=== PATIENT | female | born 1965 | race Caucasian/White ===

== ENCOUNTER → 2017-10-20 | Outpatient (CLI) | payer OTHER, MEDICAID ==
[~2017-10-20] MED LIST: ALPR.5 PO; BACL20TA PO; BUPR100CR PO; METH1TAB2 PO; MORP1TAB24 PO; OXYC-360 PO; SIMV20TA OR; SIMV40TA PO
[2017-10-20 09:50] LABS: HEMATOCRIT 41.1 % (35.0-46.0); HEMOGLOBIN 13.9 GM/DL (11.6-15.3); MEAN CELL VOLUME 90.5 FL (80.0-100.0); MEAN CORPUSCULAR HEMOGLOBIN 30.6 PG (27.0-34.0); MEAN CORPUSCULAR HGB CONC 33.8 % (32.0-36.0); MEAN PLATELET VOLUME 8.6 FL (7.0-11.0); PLATELET COUNT 261 TH/MM3 (150-450); RED BLOOD COUNT 4.54 MIL/MM3 (4.00-5.30); WHITE BLOOD COUNT 15.3 TH/MM3 (4.0-11.0)
[2017-10-20 09:55] LABS: BILIRUBIN, URINE NEG (NEG); GLUCOSE,URINE NEG (NEG); KETONE, URINE NEG (NEG); NITRITE,URINE NEG (NEG); PH, URINE 5.5 (5.0-8.5); URINE LEUKOCYTE ESTERASE NEG (NEG)
[2017-10-20 09:56] LABS: BLOOD, URINE TRACE (NEG)
[2017-10-20 10:02] LABS: CALCIUM 9.1 MG/DL (8.5-10.1)
[2017-10-20 10:03] LABS: ALBUMIN 3.5 GM/DL (3.4-5.0); BICARBONATE 28.3 MEQ/L (21.0-32.0); CHLORIDE 106 MEQ/L (98-107); GLUCOSE,RANDOM 99 MG/DL (74-106); SODIUM (NA) 141 MEQ/L (136-145)
[2017-10-20 10:04] LABS: URINE COLOR YELLOW (YELLW/STRAW)
[2017-10-20 10:05] LABS: BLOOD UREA NITROGEN 11 MG/DL (7-18)
[2017-10-20 10:06] LABS: ALT (GPT) 13 U/L (10-53); AST (GOT) 14 U/L (15-37); CREATININE 0.98 MG/DL (0.50-1.00); GLOMERULAR FILTRATION RATE 59 ML/MIN (>89); PROTHROMBIN TIME - PATIENT 10.1 SEC (9.8-11.6)
[2017-10-20 10:06] LABS: RBC, URINE 0-3 /hpf (0-3); WBC, URINE 0-2 /hpf (0-5)
[2017-10-20 10:08] LABS: TOTAL BILIRUBIN ADULT 0.3 MG/DL (0.2-1.0); TOTAL PROTEIN 7.4 GM/DL (6.4-8.2)
[2017-10-20 10:09] LABS: ALKALINE PHOSPHATASE 94 U/L (45-117)
--- NOTE | 2017-10-20 13:54 | EKG ---
Date Performed: 10/20/2017 Time Performed: 09:25:55 PTAGE: 52 years EKG: SINUS BRADYCARDIA MODERATE T-WAVE ABNORMALITY, CONSIDER ANTERIOR ISCHEMIA ABNORMAL ECG PREVIOUS TRACING : 07/02/2010 22.27 Since prior tracing, anterior T-wave changes are new, consi fabian ischemia. DOCTOR: Hans Modi Interpretating Date/Time 10/20/2017 13:53:30
== END ==
LOC: PHPRE 08:17
PROVIDERS: ATTEND Surgery
DX: Z01.812 Encounter for preprocedural laboratory examination (principal); Z01.810 Encounter for preprocedural cardiovascular examination; R00.1 Bradycardia, unspecified
CPT/HCPCS: 36415; 80053; 81001; 85027; 85610; 85730; 93005

== ENCOUNTER → 2017-10-27 | Day surgery (SDC) | payer OTHER, MEDICAID ==
--- NOTE | 2017-10-24 13:50 | MH ---
cc: Roe JOSEPH M.D. DATE OF ADMISSION 10/27/2017 ADMITTING DIAGNOSIS Internal derangement with arthritic degeneration right knee, now for arthroscopic debridement right knee. HISTORY OF PRESENT ILLNESS This 52-year-old female is being admitted today for a surgical arthroscopic debridement of arthritis and chondromalacia right knee. She is a pain management patient and does have a morphine pump for chronic back problems. She did have a spine fusion in the past. PAST MEDICAL HISTORY The patient has a history of sciatica, depression and chronic pain syndrome. MEDICATIONS Current medications include: 1. Morphine 50 mg tablet extended release. 2. Simvastatin. 3. Wellbutrin. 4. Baclofen. 5. Nitrofurantoin. 6. Xanax. PAST SURGICAL HISTORY Other than the spine surgery and insertion of a pain pump include cholecystectomy, appendectomy, hysterectomy, breast reduction and ankle arthroscopy. REVIEW OF SYSTEMS Noncontributory. FAMILY HISTORY Noncontributory. SOCIAL HISTORY She does smoke cigarettes but has cut back, and drinks alcohol occasionally. ALLERGIES 1. PENICILLIN. 2. PHENERGAN. PHYSICAL EXAMINATION GENERAL: We find a 52-year-old female well-developed, well-nourished and oriented x3 complaining of pain in her right knee. VITAL SIGNS: Blood pressure 144/80, pulse 74 and regular, respirations 16, temperature 98.2, pulse oximetry 96% on room air. HEENT: Eyes PERRLA, EOMI. Ears, nose and mouth clear. NECK: Supple. LUNGS: Clear. HEART: Regular rate. ABDOMEN: Soft. Positive bowel sounds. Nontender. EXTREMITIES: The right knee is tender with crepitance on range of motion. Full range of motion. Neurovascularly intact to her toes. IMPRESSION The impression at this time is osteoarthritic degeneration, chondromalacia and internal derangement, right knee. PLAN The plan is admission for arthroscopic debridement right knee today. The patient is given a prescription for 30 Benson for postoperative pain control in the office. MD JESSICA Lo/TRACEY /1:08 PM /1:18 PM
[~2017-10-27] VITALS: Ht 162.6 cm; Wt 77.0 kg
[~2017-10-27] MED LIST changes: +*Lactated Ringer's INJ 1,000 ML ONE; +*MEPERIDINE 25 MG INJ VIAL PERIprocedural Use ONLY ONE; +ACETAMINOPHEN/HYDROcodone 325 MG/5 MG TAB ONE; +BUPIVACAINE HCL PF 0.25% 30 ML VIAL ONE; +CHLORHEXIDINE GLUCONATE 2 % 1 PACK (2 CLOTHS) TOPICAL PRN; +CHLORHEXIDINE GLUCONATE 4% SOLN 120 ML BTL TOPICAL SCH; +DEXAMETHASONE SOD PHOS 4 MG/ML VIAL ONE; +LACTATED RINGER'S 1000 ML IV PRN; +METOPROLOL TARTRATE 25 MG TAB PO PRN; +MIDAZOLAM HCL 2 MG/2 ML VIAL ONE; -OXYC-360 PO; +POVIDONE IODINE 5% (ANTISEPSIS KIT) 4 APPLICATIONS EACH NARE PRN; -SIMV20TA OR; +SODIUM CHLORID 0.9% 500 ML IV PRN; +TRIAMCINOLONE ACETONIDE 40 MG/ML VIAL ONE
[2017-10-27] MEDS: CLINDAMYCIN 900 MG/NS 100 ML IV SCH ×4 (07:40→10:19)
[2017-10-27 08:57] VITALS: PULSE 69
--- NOTE | 2017-10-27 09:39 | MP ---
cc: Roe JOSEPH M.D. DATE OF SURGERY 10/27/2017 PREOPERATIVE DIAGNOSIS Arthritic degeneration, right knee. POSTOPERATIVE DIAGNOSIS Arthritic degeneration, right knee. SURGERY PERFORMED Arthroscopy with debridement of arthritis, right knee. SURGEON Dr. Joseph. BUFFING MACHINE OPERATOR SEMIAUTOMATIC JUAN R Kraus. ANESTHESIA LMA. PROCEDURE The patient was brought to the operating room and placed on the operating room table in the supine position. After successful induction of general anesthesia, the patient's right leg was prepped and draped in the usual manner. The knee was then placed in a knee rose and tightened. Arthroscopic examination was then performed by making a stab wound over the proximal superior and medial aspect of the patellofemoral joint for insertion of the inflow cannula and fluid, followed by stab wounds over the medial and lateral joint margins respectively for insertion of the arthroscope, shaver and probe. Arthroscopic examination was then performed which revealed moderate arthritic degeneration all three compartments of the right knee with chondromalacia medial and lateral compartments, mainly involving the distal femur weightbearing surfaces, shaved smooth using the ArthroCare system. The patellofemoral joint was shaved smooth using the ArthroCare system with chondromalacia. The anterior cruciate was found to be intact. The rest of the knee joint was found to be intact. The menisci were intact. The wound was irrigated copiously with lactated Ringer's solution. Excess fluid was removed. 9 cc of 0.25% Marcaine plain and 1 cc of Decadron was instilled in the knee joint. The skin was approximated with interrupted 3-0 nylon suture. Wet and then dry dressing was applied to the wound followed by Xeroform gauze, sterile dressing and thigh-high Geremias wrap. No tourniquet was utilized. The estimated blood loss was 10 cc. Sponge and suture counts were correct. The patient tolerated the procedure well and left the operating room in satisfactory condition. MD JESSICA Lo/TRACEY /8:51 AM 8:55 AM
[2017-10-27 09:45] VITALS: PULSE 54; TEMP 97.7
[2017-10-27 10:30] VITALS: BP 131/80; PULSE 59; RESP 14; O2SAT 97
== END | disposition home or self-care (01) ==
LOC: PHSDC 06:16
PROVIDERS: ATTEND Surgery
DX: M23.8X1 Other internal derangements of right knee (principal); M17.11 Unilateral primary osteoarthritis, right knee; M94.261 Chondromalacia, right knee; M54.30 Sciatica, unspecified side; F17.210 Nicotine dependence, cigarettes, uncomplicated; G89.4 Chronic pain syndrome; Z98.1 Arthrodesis status
CPT/HCPCS: 01400; 29877; E0113; J1100; J2175; J2250; J7120; J3301

== ENCOUNTER 2018-06-08 09:50 | Observation (INO) ==
[2018-06-08] MEDS ORDERED: Dexamethasone Inj 20 MG/5 ML Vial IV.PUSH SCH (10:55)
[2018-06-08] MEDS ORDERED: Chlorhexidine Gluconate 2% 1 Pack (2 Cloths) TOPICAL SCH (11:00)
[2018-06-08] MEDS ORDERED: Metoprolol Tartrate 25 MG Tablet PO SCH (11:00)
[2018-06-08] MEDS ORDERED: Sodium Chlor 0.9% Inj 80 ML, Bupivacaine Liposo PF 1.3% Inj 20 ML, Bupivacaine PF 0.25%... P-ARTICULR SCH ×3 (11:00)
[2018-06-08] MEDS ORDERED: Sodium Chlor 0.9% Inj 500 ML IV.SIG SCH (11:00)
[2018-06-08] MEDS ORDERED: Chlorhexidine 4% Topical 120 APPLIC/120 ML Bottle TOPICAL SCH (11:00)
[2018-06-08] MEDS ORDERED: Clindamycin 900 mg/NS Premix 900 MG/50 ML PIGGYBACK IV.SIG SCH (11:00)
[2018-06-08] MEDS ORDERED: Neostigmine Inj 5 MG/5 ML Syringe IV.PUSH ONE (12:00)
[2018-06-08] MEDS ORDERED: Lidocaine PF 1% Inj 5 ML Syringe INFILTRATN ONE (12:00)
[2018-06-08] MEDS ORDERED: Glycopyrrolate Inj 1 MG/5 ML Syringe IV.PUSH ONE (12:00)
[2018-06-08] MEDS ORDERED: Post-op Orders (for Pharmacy) OTHER STA (13:15)
[2018-06-08] MEDS ORDERED: Morphine Inj 4 MG/ML Vial IV.PUSH PRN (13:15)
[2018-06-08] MEDS ORDERED: Bisacodyl 10 MG Supp RECTAL PRN (13:15)
[2018-06-08] MEDS ORDERED: Tranexamic Acid Inj 1,000 MG in Sodium Chlor 0.9% Inj 100 ML IV.SIG ONE (13:15)
--- NOTE | 2018-06-08 13:25 | P.DCO ---
- Physical Therapy Order: Evaluate and treat, Improve ambulation, Strength and gait training - Home Health Nursing Order: Nursing assessment with vital signs - Certification I have seen patient Roshan Tate on 06/08/18. My clinical findings support the need for the requested home health care services because: High risk of falls I certify that my clinical findings support that this patient is homebound because: Post-op weakness, Unsteady gait/balance
[2018-06-08] MEDS ORDERED: TRANEXAMIC ACID IV.SIG SCH ×2 (14:00→17:00)
[2018-06-08] MEDS ORDERED: SODIUM CHLOR 0.9% IV.SIG SCH ×2 (14:00→17:00)
[2018-06-08] MEDS ORDERED: *Meperidine Inj 25 MG/ML Vial PERIprocedural Use ONLY ONE (16:19)
[2018-06-08] MEDS ORDERED: fentaNYL Citrate Inj 100 MCG/2 ML Ampul ONE (16:30)
[2018-06-08] MEDS ORDERED: *morphine SULFATE 10 MG/ML PERIprocedure ONLY ONE (16:43)
--- NOTE | 2018-06-08 16:48 | P.BOP ---
- Preoperative Diagnosis (1) Osteoarthritis of right knee - Postoperative Diagnosis (1) Osteoarthritis of right knee (2) Status post total right knee replacement using cement Date of procedure: 06/08/18 Procedure: Right Total Knee Arthroplasty Implants: see implant record Anesthesia: GETA Surgeon: Casey Wing MD Strawhat Blocking Operator: Marlene Scott Estimated blood loss (mL): 100 Tourniquet time (min): 41 (300 mmHg) Urine output (mL): 0 (no thomas) Pathology: none sent Condition: stable Disposition: PACU
--- NOTE | 2018-06-08 17:13 | XR ---
EXAM DATE: 06/08/2018 4:56 PM EDT AGE/SEX: 53 years / Female INDICATIONS: Post op right total knee. CLINICAL DATA: This is the patient's initial encounter. Patient reports that signs and symptoms have been present for 1 day and indicates a pain score of Nonresponsive. MEDICAL/SURGICAL HISTORY: None. None. COMPARISON: No prior exams available for comparison. FINDINGS: Postoperative right total knee replacement. Normal alignment. No significant joint effusion identifie d. CONCLUSION: Postoperative right total knee replacement. Electronically signed by: Jim Jeffries MD 06/08/2018 5:12 PM EDT
--- NOTE | 2018-06-08 17:13 | MP ---
cc: Roe Wing MD DATE OF OPERATION: 06/08/2018 PREOPERATIVE DIAGNOSIS: Osteoarthritic degeneration, right knee. POSTOPERATIVE DIAGNOSIS: Osteoarthritic degeneration, right knee. PROCEDURE PERFORMED: Right total knee arthroplasty using Consensus components, size 4 femur, 2 tibia, 12 standard insert, and size 2 patella with 2 batches of DePuy cement. SURGEON: Roe Wing MD CORPORATE MANAGER: JANEL Randhawa ANESTHESIA: General intubation and block. PROCEDURE IN DETAIL: After successful induction of anesthesia, the patient is placed on the operating room table in the supine position. The knee is prepped and draped in the usual manner. A tourniquet is inflated at the upper thigh and set to 300 mmHg pressure after exsanguination of the lower extremity. A longitudinal incision is made extending from 3 inches proximal to the superior pole of the patella, across the patella in longitudinal fashion, and down past the insertion of the tibial tubercle into the proximal tibia. The incision is carried down through subcutaneous tissue along the medial aspect of the patella and retinaculum, down through the capsule to expose the knee joint. The patella and patellar tendon are freed up enough to allow the patella to be inverted and retracted off the lateral side of the knee joint. The knee joint is left exposed. Small osteophytes are removed. All soft tissue is removed to allow proper position of the femoral and tibial cutting jig guide. The first femoral jig is then inserted along the distal end of the femur after first measuring to decide whether this is a small, medium, or large component. The notch is then drilled and the tibial cutting guide inserted into the femoral cutting guide, along with the ankle brace to allow for proper measurement of the tibial cutting surface that needed to be resected. Pins are inserted into the tibial cutting jig and femoral cutting jig to hold them in place. An oscillating saw is then used to resect the surface of the tibia. The surface of the tibia is then completely removed using sharp and blunt dissection. The anterior and posterior cuts of the femur are then made as well using an oscillating saw through the cutting guide. All guides are then removed and the varus/valgus angulation cutting guide applied to the femur for proper measurement of the proper amount of valgus. The anterior cutting guide for the femur is then inserted at the anterior femoral cuts made. Next, the first block trial is inserted into the femur to allow for proper condyle drill holes to be made which are then made followed by removal of the bone between the condyles using an oscillating saw as well as the bone removed at the most posterior surface of the condyle. After this, this guide is removed and the chamfer cuts made using the chamfer cutting guide from both anterior and posterior. Next, the femoral trial is then inserted, the tibial surface reflected anterior to expose the tibial surface and a tibial stem guide is inserted after first measuring for a standard, standard plus, large, or large plus surface to be used. After the stem is impacted the trial tibial surface is applied followed by the trial meniscal components. After full range of motion is found with the appropriate length meniscal components varying the patella is prepared by resecting the posterior aspect of the patella using an oscillating saw, inserting a trial. The trial is then removed and the cruciate cutting guide applied using the bur to cut the cruciate cuts. After cruciate cuts are made all trials are removed. The wound is irrigated copiously with antibiotic solution and Water Pik and the actual components inserted into place using the aforementioned components. After the cement has hardened and the components are found to have full range of motion with no instability, the tourniquet is deflated, total tourniquet time being 41 minutes at 300 mmHg pressure. The wound again is irrigated copiously with antibiotic solution, meticulous hemostasis achieved, 60 mL of mixture of Exparel, normal saline, and 0.25% Marcaine plain were used around the knee joint for extra pain control. Closure of the deep fascia with running #2 Quill, subcutaneous tissue approximated using interrupted running 2-0 and 3-0 Monocryl sutures, and skin approximated with alena. Prineo dressing and knee immobilizer. The patient tolerated the procedure well and left the operating room in satisfactory condition. DRAINS: None. ESTIMATED BLOOD LOSS: 100 mL. COUNTS: Sponge and suture counts were correct. CONDITION: The patient tolerated the procedure well and left the operating room in satisfactory condition. JANEL Randhawa, was present during the entire procedure to include patient positioning in the procedure. The medical necessity of the nurse practitioner/press operator assistant was indicated in this case due to the surgical complexity of the case itself and during the surgical case, the blood bank laboratory technician was working the back table, while my medical assistant per diem, JANEL was directly assisting me. J. Leonardo Wing MD JRR/rh , 04:03 PM , 04:08 PM
[2018-06-08] MEDS: Senna/Docusate Sodium 8.6/50 MG Tablet PO SCH (20:49)
[2018-06-08] MEDS: Multivitamin/Minerals Therapeutic Tablet PO SCH (20:49)
[2018-06-08] MEDS: ALPRAZolam 0.5 MG Tablet PO PRN (20:49)
[2018-06-08] MEDS: Clindamycin 900 mg/NS Premix 900 MG/50 ML PIGGYBACK IV.SIG SCH (22:09)
[2018-06-09] MEDS: Clindamycin 900 mg/NS Premix 900 MG/50 ML PIGGYBACK IV.SIG SCH ×2 (04:57→12:01)
[2018-06-09 08:07] LABS: Hematocrit 36.7 % (35.0-46.0); Hemoglobin 12.2 gm/dL (11.6-15.3)
[2018-06-09] MEDS: Senna/Docusate Sodium 8.6/50 MG Tablet PO SCH ×2 (08:58→19:59)
[2018-06-09] MEDS: buPROPion 100 MG ER 12 HR Tablet PO SCH (08:58)
[2018-06-09] MEDS: Multivitamin/Minerals Therapeutic Tablet PO SCH ×2 (08:58→19:59)
[2018-06-09] MEDS ORDERED: METHENAMINE HIPPURATE 1 GM PO SCH (09:00)
--- NOTE | 2018-06-09 12:15 | P.PNOP ---
Subjective Interval history: Patient is basically comfortable today with minimal complaints of pain. Physical Exam Vital signs: Vital Signs 06/08/18 16:18 06/08/18 16:30 06/08/18 16:40 Temperature 97.7 F Pulse Rate 83 67 Respiratory Rate 18 14 17 Blood Pressure 166/88 H 171/88 H Pulse Oximetry 94 L 97 06/08/18 16:45 06/08/18 16:54 06/08/18 17:00 Temperature Pulse Rate 61 67 Respiratory Rate 12 13 11 L Blood Pressure 178/96 H 165/89 H Pulse Oximetry 93 L 96 06/08/18 17:11 06/08/18 17:15 06/08/18 17:41 Temperature 97.7 F 97.3 F L Pulse Rate 61 63 Respiratory Rate 16 16 16 Blood Pressure 156/84 H 168/90 H Pulse Oximetry 95 97 06/08/18 20:00 06/08/18 20:55 06/09/18 00:00 Temperature 98.8 F 97.5 F L Pulse Rate 83 79 Respiratory Rate 17 18 18 Blood Pressure 156/78 H 166/86 H Pulse Oximetry 97 95 06/09/18 04:00 06/09/18 08:00 Temperature 98.6 F 98.1 F Pulse Rate 63 54 L Respiratory Rate 17 16 Blood Pressure 142/67 H 158/68 H Pulse Oximetry 96 96 Intake & Output 06/08/18 06/09/18 06/09/18 18:59 06:59 18:59 Intake Total 1530 / 1530 100 / 100 Output Total 100 / 100 500 / 500 Balance 1430 / 1430 100 / 100 -500 / -500 Weight 73.4 kg 73.4 kg Intake: IV 1050 / 1050 100 / 100 Cleocin 900 mg/NS Premix 900 mg 50 / 50 100 / 100 In 50 ml @ 100 mls/hr IV.SIG Q8H ALEAH Rx#:[id number] LR 1000 mL Inj 1,000 ML @ 30 1000 / 1000 mls/hr IV.SIG .Q24H ALEAH Rx#: [id number] Oral 480 / 480 Output: Urine 500 / 500 Estimated Blood Loss 100 / 100 Other: # Voids 3 Date of Last Bowel Movement 06/08/18 06/08/18 06/07/18 Weight On Admission 73.4 kg - Constitutional no acute distress Results - Labs CBC & Chem 7: 06/09/18 07:18 Laboratory Results - last 24 hr 06/09/18 07:18 Hgb 12.2 Hct 36.7 - Imaging Impressions Knee X-Ray 06/08/18 13:15 CONCLUSION: Postoperative right total knee replacement. Assessment and Plan - Problem List (1) Status post total right knee replacement using cement Code(s): Z96.651 - Presence of right artificial knee joint Status: Acute - Attending Attestation Attending Attestation: Patient is doing very well 1 day status post right total knee arthroplasty. She is on CPM at present and the dressing is dry and intact. She is neurovascularly intact to her toes. Plan is for the patient to continue therapy and p.o. pain meds today and be discharged tomorrow to home with home health care and physical therapy.
[2018-06-09] MEDS: ALPRAZolam 0.5 MG Tablet PO PRN (19:58)
[2018-06-10] MEDS: buPROPion 100 MG ER 12 HR Tablet PO SCH (08:19)
[2018-06-10] MEDS: Multivitamin/Minerals Therapeutic Tablet PO SCH ×2 (08:19→21:57)
[2018-06-10] MEDS: Senna/Docusate Sodium 8.6/50 MG Tablet PO SCH ×2 (08:19→21:56)
[2018-06-10 08:22] LABS: Hemoglobin 11.4 gm/dL (11.6-15.3)
--- NOTE | 2018-06-10 13:47 | P.PNOP ---
Subjective Interval history: Patient is still painful but feels she's getting around better. Physical Exam Vital signs: Vital Signs 06/09/18 16:00 06/09/18 19:58 06/09/18 20:00 Temperature 98.0 F 98.4 F Pulse Rate 55 L 65 Respiratory Rate 16 18 18 Blood Pressure 141/65 H 158/78 H Pulse Oximetry 95 97 06/10/18 00:00 06/10/18 01:53 06/10/18 03:22 Temperature 98.6 F Pulse Rate 55 L Respiratory Rate 18 16 18 Blood Pressure 162/77 H Pulse Oximetry 98 06/10/18 04:00 06/10/18 08:00 Temperature 98.5 F 98.2 F Pulse Rate 58 L 67 Respiratory Rate 18 17 Blood Pressure 151/80 H 158/86 H Pulse Oximetry 96 99 Intake & Output 06/09/18 06/10/18 06/10/18 18:59 06:59 18:59 Intake Total 1000 / 1000 300 / 300 Output Total 500 / 500 Balance 500 / 500 300 / 300 Weight 88 kg Intake: Oral 1000 / 1000 300 / 300 Output: Urine 500 / 500 Other: # Voids 1 3 1 Date of Last Bowel Movement 06/07/18 06/07/18 06/07/18 - Constitutional mild distress Results - Labs CBC & Chem 7: 06/10/18 06:03 Laboratory Results - last 24 hr 06/10/18 06:03 Hgb 11.4 L Hct 34.0 L Assessment and Plan - Problem List (1) Status post total right knee replacement using cement Code(s): Z96.651 - Presence of right artificial knee joint Status: Acute - Attending Attestation Attending Attestation: Doing fairly well but still painful sp right total knee. Cont PT, ice to knee. No calf tenderness. and wound is clean and dry. Plan Home tomorrow with HHC and PT.
[2018-06-10] MEDS: ALPRAZolam 0.5 MG Tablet PO PRN (23:24)
[2018-06-11] MEDS: buPROPion 100 MG ER 12 HR Tablet PO SCH (08:51)
[2018-06-11] MEDS: Multivitamin/Minerals Therapeutic Tablet PO SCH (08:51)
[2018-06-11] MEDS: Senna/Docusate Sodium 8.6/50 MG Tablet PO SCH (08:51)
--- NOTE | 2018-06-11 10:04 | P.PNOP ---
Subjective Interval history: Patient still having some pain. She feels that she is ready to be discharged now. Physical Exam Vital signs: Vital Signs 06/10/18 12:00 06/10/18 16:00 06/10/18 20:00 Temperature 98.2 F 98.4 F 99.1 F Pulse Rate 70 67 73 Respiratory Rate 17 17 18 Blood Pressure 171/86 H 195/89 H 168/78 H Pulse Oximetry 99 99 99 06/11/18 00:00 06/11/18 04:00 06/11/18 08:00 Temperature 99.1 F 99.3 F 98.1 F Pulse Rate 60 71 68 Respiratory Rate 18 18 16 Blood Pressure 171/84 H 158/75 H 137/76 Pulse Oximetry 100 96 98 Intake & Output 06/10/18 06/11/18 06/11/18 18:59 06:59 18:59 Intake Total 1000 / 1000 667.34 / 667.34 157.34 / 157.34 Balance 1000 / 1000 667.34 / 667.34 157.34 / 157.34 Weight 79.9 kg Intake: IV 1000 / 1000 107.34 / 107.34 157.34 / 157.34 LR 1000 mL Inj 1,000 ML @ 30 1000 / 1000 mls/hr IV.SIG .Q24H ALEAH Rx#: [id number] Oral 560 / 560 Other: # Voids 1 4 Date of Last Bowel Movement 06/07/18 06/10/18 06/10/18 # Bowel Movements 1 1 - Constitutional no acute distress Results - Labs CBC & Chem 7: 06/10/18 06:03 Assessment and Plan - Problem List (1) Status post total right knee replacement using cement Code(s): Z96.651 - Presence of right artificial knee joint Status: Acute - Attending Attestation Attending Attestation: Wound is clean and dry. Range of motion on CPM is from full extension to 70 of flexion. She is neurovascularly intact to her toes and has no calf tenderness. Plan is for her to be discharged today with instructions for home health care and physical therapy. She has an appointment for follow-up later this week in the office. She is discharged in good condition.
--- NOTE | 2018-06-13 07:49 | MD ---
cc: Roe Wing MD DATE OF DISCHARGE: 06/11/2018 ADMITTING DIAGNOSIS: Osteoarthritic degeneration, right knee. DISCHARGE DIAGNOSIS: Osteoarthritic degeneration, right knee. DISCHARGE SUMMARY: This is a pleasant 53-year-old female who was admitted on 06/09/2018, at which time she underwent right total knee arthroplasty. Postoperatively, she remained afebrile and vital signs stable. She received a course of prophylactic IV antibiotics and within 23 hours, started on anticoagulation therapy. She continued to improve tolerating food and fluid well and CPM machine and therapy and was discharged on third postoperative day to home with home health care and physical therapy and followup appointment in the office for recheck in good condition. Roe Wing MD JRR/sv , 10:06 AM , 10:10 AM
--- NOTE | 2018-06-14 09:47 | MH ---
cc: Roe Wing MD DATE OF ADMISSION: 06/08/2018 ADMITTING DIAGNOSIS: Osteoarthritic degeneration, right knee, now being admitted for right total knee arthroplasty. HISTORY OF PRESENT ILLNESS: This pleasant 53-year-old female is being admitted today for right total knee arthroplasty due to severe painful osteoarthritic degeneration, right knee. PAST MEDICAL HISTORY: She has medical history of chronic pain syndrome, depression, and sciatica. CURRENT MEDICATIONS: Include: 1. Morphine 15 mg extended release tabs. 2. Simvastatin. 3 Wellbutrin. 4 Baclofen. 5 Nitrofurantoin. 6. Xanax 1 mg tablets. PAST SURGICAL HISTORY: Include cholecystectomy, appendectomy, hysterectomy, breast reduction, ankle arthroscopy and spinal fusion. REVIEW OF SYSTEMS: Noncontributory. FAMILY HISTORY: Noncontributory. SOCIAL HISTORY: She does smoke cigarettes and drinks alcohol occasionally. ALLERGIES: ALLERGIC TO PHENERGAN AND PENICILLIN. PHYSICAL EXAMINATION: GENERAL: We find a 53-year-old female well-developed well-nourished who presents with a complaint of pain in right knee. VITAL SIGNS: Blood pressure 112/68, pulse 71 and regular, respirations 16, temperature 98.2, pulse oximetry 98% on room air. HEENT: Eyes: PERRLA, EOMI. Ears, nose, mouth clear. NECK: Supple. LUNGS: Clear. HEART: Regular rate. ABDOMEN: Soft, positive bowel sounds, nontender. EXTREMITIES: Show the right knee to be tender with crepitance on range of motion. She is neurovascularly intact to her toes. IMPRESSION: Severe painful osteoarthritic degeneration, right knee. PLAN: Admission for right total knee arthroplasty today. The patient was given a prescription for postoperative pain and anticoagulation control in the office. Plans on going home after surgical stay in the hospital for home health care and physical therapy. MD JESSICA Alfaro/lois , 10:25 AM , 10:31 AM
== END 2018-06-11 13:55 | disposition home health service (06) ==
LOC: N06 09:50 → HSDC 09:50
PROVIDERS: ADMIT Surgery; ATTEND Surgery